=== PATIENT | male | born 1930 | race Caucasian/White ===

== ENCOUNTER 2018-01-15 18:41 | Emergency (ER) | payer MEDICARE ==
[~2018-01-15] VITALS: Ht 170.2 cm; Wt 74.8 kg
--- NOTE | 2018-01-15 19:45 | NUR ---
PT RPRESENTS TO ER C/O URINARY RETENTION AND PELVIC PAIN WITH HX OF STRICTURES AND ATTEMPTED STENT PLACEMENT. HAS BEEN ABLE TO URINATE SMALL AMOUNTS TODAY BUT PAIN PERSISTS.
[2018-01-15] MEDS ORDERED: LIDOCAINE 2% JEL UROJET 10 ML MM ONE ×2 (19:54→20:30)
--- NOTE | 2018-01-15 20:27 | NUR ---
INSERTED 14FR COUDE TIP SEGURA WITH IMMEDIATE DRAINAGE OF 200CC CLEAR YELLOW URINE. LEG BAG PROVIDED AND INSTRUCTIONS GIVEN.
--- NOTE | 2018-01-15 20:59 | NUR ---
UOP 400CC TOTAL
--- NOTE | 2018-01-15 20:59 | NUR ---
Patient discharged to home in stable condition. Written and verbal after care instructions given. Patient verbalizes understanding of instruction.
[2018-01-15 21:00] VITALS: BP 159/100
== END 2018-01-15 21:00 | disposition home or self-care (01) ==
LOC: ER 18:46
DX: N32.0 Bladder-neck obstruction (principal); R33.9 Retention of urine, unspecified; G62.9 Polyneuropathy, unspecified; Z98.890 Other specified postprocedural states; Z88.1 Allergy status to other antibiotic agents; Z85.72 Personal history of non-Hodgkin lymphomas
CPT/HCPCS: A4606; J3490; Z7610